=== PATIENT | female | born 1990 | race Caucasian/White ===

== ENCOUNTER 2021-03-18 15:01 | Observation (INO) | payer OTHER ==
[~2021-03-18] VITALS: Ht 165.1 cm; Wt 95.7 kg
[~2021-03-18 15:01] MED LIST: BACTROBAN OINT22 GM EXT; VIBRAMYCIN100 MG PO
[2021-03-18 16:17] LABS: HEMOGLOBIN 11.3 gm/dl (12.3-15.3); RED BLOOD COUNT 3.84 M/UL (4.00-5.10); WHITE BLOOD COUNT 8.2 K/UL (4.5-11.0)
[2021-03-18 16:35] LABS: BUN/CREATININE RATIO 12 (0-10)
[2021-03-18] MEDS ORDERED: LEVOTHYROXINE75 MC1 PO (23:27)
[2021-03-18] MEDS ORDERED: WELLBUTRIN XL300 M1 PO (23:27)
[2021-03-19 10:06] LABS: HEMOGLOBIN 10.8 gm/dl (12.3-15.3); RED BLOOD COUNT 3.58 M/UL (4.00-5.10); WHITE BLOOD COUNT 6.9 K/UL (4.5-11.0)
[2021-03-19 10:25] LABS: BUN/CREATININE RATIO 10 (0-10)
[2021-03-20 06:12] LABS: HBSAG SCREEN Negative (Negative); HEP A AB, IGM Negative (Negative); HEP B CORE AB, IGM Negative (Negative); HEP C VIRUS AB 2.2 (0.0-0.9)
[2021-03-20 06:55] LABS: HEMOGLOBIN 11.2 gm/dl (12.3-15.3); RED BLOOD COUNT 3.71 M/UL (4.00-5.10); WHITE BLOOD COUNT 6.6 K/UL (4.5-11.0)
[2021-03-20 07:57] LABS: BUN/CREATININE RATIO 10 (0-10)
[2021-03-20] MEDS ORDERED: ELIQUIS5 MG PO (11:50)
[2021-03-20] MEDS ORDERED: ELIQUIS 5 MG TAB5 MG PO (11:50)
[2021-03-20] MEDS ORDERED: OXYCODONE HCL5 MG PO (11:50)
[2021-03-20] MEDS ORDERED: OXYCODONE HCL5 M1 PO (11:53)
== END 2021-03-20 16:30 | disposition home or self-care (01) ==
LOC: ER1 15:01 → CDU 20:42 → M/S 20:42
PROVIDERS: Internal Medicine; Physician Assistant; ADMIT Internal Medicine
DX: D73.5 Infarction of spleen (principal); R16.2 Hepatomegaly with splenomegaly, not elsewhere classified; E03.9 Hypothyroidism, unspecified; F32.9 Major depressive disorder, single episode, unspecified; Z90.49 Acquired absence of other specified parts of digestive tract; Z98.51 Tubal ligation status; Z88.1 Allergy status to other antibiotic agents; F17.210 Nicotine dependence, cigarettes, uncomplicated; Z20.822 Contact with and (suspected) exposure to COVID-19; I74.9 Embolism and thrombosis of unspecified artery
CPT/HCPCS: ECHO; 36415; 80053; 80074; 81001; 82150; 83690; 84703; 85025; 85027; 93005; 93306; 93312; 93320; 96372; 96374; 96375; 96376; 99285; G0378; J1650; J2250; J2270; J2310; J2405; J3010; Q9967; U0002

== ENCOUNTER 2021-12-27 12:57 | Emergency (ER) | payer OTHER ==
[~2021-12-27 12:57] MED LIST changes: +ELIQUIS 5 MG TAB5 MG PO; +ELIQUIS5 MG PO; +LEVOTHYROXINE75 MC1 PO; +OXYCODONE HCL5 M1 PO; +OXYCODONE HCL5 MG PO; +WELLBUTRIN XL300 M1 PO
[2021-12-27 15:00] LABS: HEMOGLOBIN 12.3 gm/dl (12.3-15.3); RED BLOOD COUNT 4.22 M/UL (4.00-5.10)
[2021-12-27 15:24] LABS: BUN/CREATININE RATIO 16 (0-10)
== END 2021-12-27 17:56 | disposition home or self-care (01) ==
LOC: ER1 12:57
PROVIDERS: Student in an Organized Health Care Education/Training Program
DX: R10.12 Left upper quadrant pain (principal); R10.812 Left upper quadrant abdominal tenderness; F17.200 Nicotine dependence, unspecified, uncomplicated; Z79.01 Long term (current) use of anticoagulants
CPT/HCPCS: 80053; 81001; 83690; 84703; 85025; 86403; 99284; Q9967